=== PATIENT | male | born 1945 | race Caucasian/White ===

== ENCOUNTER 2017-06-07 09:46 | Emergency (ER) | payer MEDICARE, OTHER ==
[2017-06-07 09:59] VITALS: BP 131/53
--- NOTE | 2017-06-07 10:58 | UC ---
Respiratory Complaint HPI - HPI Summary HPI Summary: pt presents with c/o of cough X 2 weeks. Pt reports thta the cough began 2 weeks ago and was "dry". Pt then states he slipped from standing on a wooden desk and fell on lateral mid side of trunk/ribs. Pt reports pain/discomfort from fall has resolved but now is concerned about "dry" cough that is now "wet" and kept him up last night. - History of Current Complaint Chief Complaint: UCGeneralIllness Stated Complaint: COUGH,CONGESTION Time Seen by Provider: 06/07/17 10:34 Hx Obtained From: Patient Onset/Duration: Gradual Onset, Lasting Weeks - 2 Timing: Intermittent Episodes Severity Initially: Mild Severity Currently: Mild Character: Cough: Productive - occasional, clear, or yellow Aggravating Factors: Recumbent Position Alleviating Factors: Spontaneous Resolution Associated Signs And Symptoms: Positive: Negative - Risk Factors Pulmonary Embolism Risk Factors: Trauma - fall from standing position Cardiac Risk Factors: Hypertension, CAD Pseudomonas Risk Factors: Negative - unknown Tuberculosis Risk Factors: Diabetes - Allergies/Home Medications Allergies/Adverse Reactions: Allergies Allergy/AdvReac Type Severity Reaction Status Date / Time No Known Allergies Allergy Verified 06/07/17 09:52 Home Medications: Home Medications Cholecalciferol [Vitamin D3] 1,000 unit PO DAILY 06/07/17 [History Confirmed 08/16] Insulin Aspart [Novolog] 18 unit SC SEE INSTRUCTIONS 06/07/17 [History Confirmed 06/07/17] Lactobacillus [Probiotic] 1 cap PO DAILY 06/07/17 [History Confirmed 06/07/17] Magnesium 500 mg PO DAILY 06/07/17 [History Confirmed 06/07/17] Multiple Vitamins W/ Minerals [Multivitamin Men 50+] 2 tab PO DAILY 06/07/17 [ History Confirmed 06/07/17] Simvastatin TAB(NF) [Zocor 20 MG (NF)] 20 mg PO DAILY 06/07/17 [History Confirmed 06/07/17] Warfarin TAB(*) [Coumadin TAB(*)] 7.5 mg PO DAILY 06/07/17 [History Confirmed ] amLODIPine/Benazepril 10/20(NF [Lotrel 10/20(NF)] 1 cap PO DAILY 06/07/17 [ History Confirmed 06/07/17] glyBURIDE TAB* [Diabeta TAB*] 5 mg PO BEDTIME 06/07/17 [History Confirmed ] PMH/Surg Hx/FS Hx/Imm Hx Previously Healthy: Yes Cardiovascular History: Cardiac Disease - Surgical History Surgical History: Yes Surgery Procedure, Year, and Place: hernia repair, kidney stone removal, valve replacement surgery Aug 2014 - Family History Known Family History: Positive: Cardiac Disease - Social History Alcohol Use: None Substance Use Type: None Smoking Status (MU): Never Smoked Tobacco Review of Systems Constitutional: Negative Skin: Negative Eyes: Negative ENT: Negative Respiratory: Cough Cardiovascular: Negative Gastrointestinal: Negative Genitourinary: Negative Motor: Negative Neurovascular: Negative Musculoskeletal: Negative Neurological: Negative Psychological: Negative All Other Systems Reviewed And Are Negative: Yes Physical Exam Triage Information Reviewed: Yes Appearance: Well-Appearing Vital Signs: Initial Vital Signs Temp 97.7 F 06/07/17 09:53 Pulse 61 06/07/17 09:53 Resp 16 06/07/17 09:53 BP 131/53 06/07/17 09:53 Pulse Ox 96 06/07/17 09:53 Eye Exam: Normal ENT Exam: Normal Neck exam: Normal Respiratory Exam: Normal Respiratory: Positive: Normal breath sounds Cardiovascular: Positive: Murmur:Sys:Grade _?_/ Musculoskeletal Exam: Normal Neurological Exam: Normal Psychological Exam: Normal Skin Exam: Normal UC Diagnostic Evaluation - Laboratory O2 Sat by Pulse Oximetry: 96 Respiratory Course/Dx - Differential Dx/Diagnosis Differential Diagnosis/HQI/PQRI: Bronchitis, Other - COPD Provider Diagnoses: cough. post viral cough. COPD-? Discharge - Discharge Plan Condition: Stable Disposition: HOME Prescriptions: Albuterol HFA INHALER* [Ventolin HFA Inhaler*] 1 - 2 puff INH Q6H PRN #1 mdi PRN Reason: Cough Benzonatate CAP* [Tessalon 100 MG CAP*] 100 mg PO TID PRN #30 cap PRN Reason: Cough Patient Education Materials: Acute Cough (ED) Referrals: Dusty Renee DO [Primary Care Provider] -
--- NOTE | 2017-06-07 11:26 | RAD ---
HISTORY: Worsening cough, subacute trauma COMPARISONS: December 19, 2008 VIEWS: 4: Frontal dual-energy and lateral views of the chest. FINDINGS: CARDIOMEDIASTINAL SILHOUETTE: The cardiac silhouette is mildly enlarged. The cardiomediastinal silhouette is otherwise normal. Prosthetic heart valve is noted BRUCE: The bruce are normal. PLEURA: The costophrenic angles are sharp. No pleural abnormalities are noted. LUNG PARENCHYMA: There is hyperinflation with flattening of the diaphragm and expansion of the AP diameter of the chest. ABDOMEN: The upper abdomen is clear. There is no subphrenic gas. BONES AND SOFT TISSUES: Degenerative changes are noted along the spine. The patient is status post median sternotomy. OTHER: None. IMPRESSION: 1. MILD CARDIOMEGALY. 2. HYPERINFLATION. 3. NO ACTIVE CARDIOPULMONARY DISEASE.
== END 2017-06-07 11:53 | disposition home or self-care (01) ==
LOC: UCCORT 09:46
DX: R05 Cough (principal); I10 Essential (primary) hypertension; I25.10 Atherosclerotic heart disease of native coronary artery without angina pectoris
CPT/HCPCS: 71020; 99212; G0463